=== PATIENT | female | born 1970 | race Caucasian/White ===

== ENCOUNTER 2021-06-24 21:11 | Emergency (ER) | payer OTHER ==
[2021-06-24 21:33] VITALS: BP 134/85; PULSE 88; TEMP 98.4; BMI 36.6
[2021-06-24] MEDS ORDERED: KETOROLAC TROMETHAMINE 30 MG/1 ML VIAL IM ONE (23:18)
[2021-06-24] MEDS ORDERED: KETOROLAC TROMETHAMINE 30 MG/1 ML VIAL ONE (23:38)
== END 2021-06-24 23:45 | disposition home or self-care (01) ==
LOC: JERFT 21:11
PROC: 3E0233Z Introduction of Anti-inflammatory into Muscle, Percutaneous Approach (ICD-10-PCS; principal; 2021-06-24)
DX: M25.561 Pain in right knee (principal)
CPT/HCPCS: 73562-TC-RT-FY; 99284-25